=== PATIENT | male | born 1975 | race Caucasian/White ===

== ENCOUNTER 2023-04-05 15:37 | Emergency (ER) | payer BC, SELFPAY ==
--- NOTE | ~2023-04-05 | XR_ITS ---
XR chest 2V 04/05/2023 16:08 Indication: Chest pain, shortness of breath and hypertension Procedure: 2 view chest Comparison: No prior studies Findings: Heart size normal. No focal air space disease, pulmonary edema, pleural effusion or suspect ed pneumothorax. Impression: 1: No acute cardiopulmonary disease. Reviewed, dictated and finalized at location A. Impression: 1: No acute cardiopulmonary disease.
--- NOTE | 2023-04-05 15:45 | ECG_ITS ---
Measurements Intervals [place] Rate: 94 P: 68 [place]: 144 QRS: 57 QRSD: 110 T: 51 QT: 360 QTc: 451 Interpretive Statements SINUS RHYTHM INTRAVENTRICULAR CONDUCTION DELAY DELAYED PRECORDIAL R/S TRANSITION BASELINE ARTIFACT- I, III, AVL BORDERLINE ECG NO PREVIOUS ECG AVAILABLE FOR COMPARISON Electronically Signed On 04-05-2023 18:51:04 CDT by Marquez Silva D.O.
[2023-04-05 15:48] VITALS: BP 160/81; PULSE 95; RESP 15; TEMP 36.9; O2SAT 100
[2023-04-05 16:00] LABS: Basophils Percent Auto 0.1 % (0.2-1.2); Eosinophils Percent Auto 0.4 % (0-4.4); Hematocrit 43.3 % (42.0-52.0); Hemoglobin 14.1 g/dL (14.0-18.0); Immature Granulocyte Absolute 0.05 K/mm3 (0.00-0.031); Immature Granulocyte Percent A 0.5 % (0-0.5); Lymphocytes Absolute Auto 1.47 K/mm3 (0.9-3.2); Lymphocytes Percent Auto 14.4 % (18.3-44.2); Mean Corpuscular HGB Conc 32.6 g/dl (32-36); Mean Corpuscular Hemoglobin 30.9 pg (26-34); Mean Platelet Volume 9.7 fl (7.4-10.4); Monocytes Absolute Auto 0.5 K/mm3 (0.1-0.6); Monocytes Percent Auto 4.8 % (2.6-8.5); Neutrophils Absolute Auto 8.2 K/mm3 (1.3-6.7); Neutrophils Percent Auto 79.8 % (45.5-73.1); Platelet Count Result 179 k/mm3 (150-375); Red Blood Count 4.56 M/mm3 (4.6-6.20); Red Cell Distribution Width 12.1 % (11.5-14.5); White Blood Count 10.2 K/mm3 (4.5-10.0)
[2023-04-05 16:11] LABS: Prothrombin Time 13.7 Seconds (11.1-14.7)
[2023-04-05 16:12] LABS: Partial Thromboplastin Time 26.6 SECONDS (22.3-36.8)
[2023-04-05 16:13] LABS: Alanine Aminotransferase 88 U/L (6-50); Albumin Level 4.9 g/dL (3.5-5.1); Alkaline Phosphatase 55 U/L (38-126); Anion Gap 9 mmol/L (8-16); Aspartate Amino Transferase 54 U/L (17-59); Bilirubin,Total 0.9 mg/dL (0.2-1.3); Blood Urea Nitrogen 13 mg/dL (9-20); Calcium 9.4 mg/dL (8.4-10.2); Carbon Dioxide 26 mmol/L (22-30); Chloride 102 mmol/L (98-107); Estimated CRCL calculation 102 ml/min; Estimated Glomerular Filt Rate > 60; Glucose 104 mg/dL (65-110); Lipase 137 U/L (23-300); Potassium 3.8 mmol/L (3.4-5.0); Sodium 137 mmol/L (137-145)
[2023-04-05 16:25] LABS: Troponin I < 0.012 ng/mL (0.000-0.034)
[2023-04-05 18:40] VITALS: PULSE 81
[2023-04-05] MEDS: ASPIRIN 81 MG CHEWABLE TABLET 324 MG PO (18:48)
--- NOTE | 2023-04-05 18:55 | ED.CHESTPAIN ---
HPI - Chest Pain General Chief Complaint: Chest Pain Stated Complaint: cp Time Seen by Provider: 04/05/23 18:15 History of Present Illness HPI narrative: Patient is a 47-year-old male with a history of hypertension presenting with chest pain. Patient states that his blood pressure has been running high lately. States that he has been taking his antihypertensives as prescribed. Developed some chest discomfort last night which is continued through today. States that he had a panic attack earlier and had some numbness in his fingers which has happened in the past. He was advised to come in for evaluation if he had chest pain so he came in today. States that he is starting to feel better. States that his anxiety has improved. States that certain positional changes make the chest pain work. States that it is on the left as well as the right. No pleuritic or exertional component. No shortness of breath, leg swelling, palpitations. States that he felt lightheaded while having a panic attack earlier. Denies further complaints. Related Data Home Medications Medication Instructions Recorded Confirmed losartan 50 mg tablet 50 mg PO DAILY 04/05/23 Allergies Allergy/AdvReac Type Severity Reaction Status Date / Time Penicillins Allergy Hives Verified 04/05/23 18:47 Review of Systems Review of Systems: All systems reviewed & are unremarkable except as noted in HPI and below Exam Narrative: GENERAL: Well-appearing and in no acute distress. Pleasant and cooperative HEAD: Normocephalic, atraumatic. EYES: PERRLA and EOMI. ENT: Mucous membranes moist. NECK: Supple. CHEST: Clear to auscultation. No respiratory distress. HEART: Regular rate and rhythm. No murmur heard ABDOMEN: Soft, nontender, nondistended EXTREMITIES: Normal range of motion. No edema. SKIN: Warm, dry, no rash. NEURO: No focal deficits. Alert and oriented x3. PSYCH: Normal mood and affect. Course Vital Signs Vital signs: Vital Signs Temperature 98.4 F 04/05/23 15:48 Pulse Rate 95 04/05/23 15:48 Respiratory Rate 15 04/05/23 15:48 Blood Pressure 160/81 H 04/05/23 15:48 Pulse Oximetry 100 04/05/23 15:48 Oxygen Delivery Room Air 04/05/23 15:48 Temperature 98.8 F 04/05/23 20:24 Pulse Rate 75 04/05/23 20:24 Respiratory Rate 21 H 04/05/23 20:24 Blood Pressure 130/81 04/05/23 20:24 Pulse Oximetry 99 04/05/23 20:24 Oxygen Delivery Room Air 04/05/23 15:48 MDM - Chest Pain MDM Narrative Medical decision making narrative: Patient is a 47-year-old male presenting with intermittent chest pain. Patient is hypertensive, otherwise vitals are within normal limits. Exam is unremarkable. EKG per my interpretation shows normal sinus rhythm, normal axis, + IVCD, no ST elevations or depressions. No priors for comparison. Blood work is unremarkable. Troponins are negative x2. Chest x-ray without acute abnormalities. Heart score of 3. On reevaluation, patient is resting comfortably. Blood pressure has improved on its own. Advised that he follow-up with his PCP. Appropriate return precautions given. Patient voiced understanding and is agreeable with plan. Discharged in stable condition. Differential Diagnosis Differential diagnosis: Likely fracture of rib, pneumothorax, atypical chest pain, costochondritis and chest pain Medical Records Data Attestation: I reviewed the patient's medical records. Lab Data Attestation: I reviewed the patient's lab results. 04/05/23 15:51 04/05/23 15:51 Labs: Lab Results 04/05/23 04/05/23 Range/Units 15:51 18:41 WBC 10.2 H (4.5-10.0) K/mm3 RBC 4.56 L (4.6-6.20) M/mm3 Hgb 14.1 (14.0-18.0) g/dL Hct 43.3 (42.0-52.0) % MCV 95.0 (80-100) fl MCH 30.9 (26-34) pg MCHC 32.6 (32-36) g/dl RDW 12.1 (11.5-14.5) % Plt Count 179 (150-375) k/mm3 MPV 9.7 (7.4-10.4) fl Immature Gran % (Auto) 0.5 (0-0.5) % Neut % (
[2023-04-05 19:08] LABS: Troponin I < 0.012 ng/mL (0.000-0.034)
[2023-04-05 19:22] VITALS: BP 133/81; PULSE 79; RESP 15; TEMP 37.1; O2SAT 100
[2023-04-05 19:23] VITALS: PULSE 77
[2023-04-05 20:24] VITALS: BP 130/81; PULSE 75; RESP 21; TEMP 37.1; O2SAT 99
== END 2023-04-05 20:25 | disposition home or self-care (01) ==
PROVIDERS: Emergency Provider Emergency Medicine
DX: R07.89 Other chest pain (principal)
CPT/HCPCS: 36415; 71046; 80053; 83690; 84484; 85025; 85610; 85730; 93005; 99284; A9270

== ENCOUNTER 2024-09-04 14:16 | Emergency (ER) | payer BC, SELFPAY ==
[2024-09-04 14:38] VITALS: BP 121/72; PULSE 93; RESP 15; TEMP 38; O2SAT 99
--- NOTE | 2024-09-04 14:39 | ED_ITS ---
HPI - URI/Sore Throat General Chief Complaint: Upper Respiratory Infection Stated Complaint: Sinus/Congestion Time Seen by Provider: 09/04/24 14:21 Source: patient Mode of arrival: ambulatory Limitations: no limitations History of Present Illness HPI Narrative: Patient is a 48-year-old male who presents with 4 days of cough and congestion. Patient states he called PCP and was told to come to urgent care for chest x-ray pain. Patient has also had fever. Similar symptoms 2 weeks ago. Has been taking 500 mg of Tylenol every 6 hours. Related Data Home Medications ?Medication ?Instructions ?Recorded ?Confirmed ?Last Taken ?Type losartan 50 mg tablet 50 mg PO DAILY 04/05/23 Unknown History Allergies Allergy/AdvReac Type Severity Reaction Status Date / Time Penicillins Allergy Hives Verified 09/04/24 14:22 Review of Systems Review of Systems: All systems reviewed & are unremarkable except as noted in HPI and below Constitutional: Constitutional: Denies chills, Denies fatigue, Denies fever(s), Denies headache(s), Denies malaise and Denies weakness Eyes: Eyes: Denies blurry vision, Denies itchy eyes and Denies loss of vision ENT: Denies otalgia, Denies headache(s), Reports nasal congestion, Denies sinus pain and Denies sore throat Cardiovascular: Cardiovascular: Denies chest pain, Denies irregular heart rhythm and Denies dyspnea Respiratory: Respiratory: Reports cough and Denies dyspnea Gastrointestinal: Gastrointestinal: Denies abdominal pain, Denies diarrhea, Denies nausea and Denies vomiting Musculoskeletal: Musculoskeletal: Denies back pain, Denies myalgias and Denies arthralgias Integumentary/Breasts: Skin/Breast: Denies pruritus and Denies rash Neurologic: Denies headache(s), Denies loss of vision and Denies weakness Psychiatric: Psychiatric: Reports no additional psychiatric complaints Endocrine: Endocrine: Denies fatigue Allergic/Immunologic: Allergic/Immunologic: Denies itchy eyes PMFSH Comments At time of signature, agree with nursing past medical, surgical, social and family history. There is no relevant family history pertinent to the presenting complaint. Exam Const: General: cooperative, healthy appearing, comfortable, no acute distress and well nourished Nutritional Appearance: well nourished Orientation/consciousness: patient oriented x3 Limitations: no limitations HENMT: Head: normal to inspection, normocephalic and atraumatic Ears: hearing grossly normal bilaterally, external ears normal, TM's normal bilaterally, EAC's normal and no periauricular adenopathy Face/Nose/Sinus: Normal external nose present, Abnormal mucous membranes and turbinates present erythematous bilateral and diffuse, normal facial exam, sinuses nontender and face symmetric Face and sinus: normal facial exam, sinuses nontender and face symmetric Mouth: Yes Normal oral and palatal mucosa present, Yes lip normal, Yes tongue normal, Yes Normal salivary glands and ducts present, Yes oropharynx normal and Yes moist mucous membranes Teeth and gingiva: dentition normal Throat: posterior oropharynx normal, tonsils normal and uvula midline Eyes: General: appearance normal, both eyes and all related structures Alignment and Position: alignment normal and position normal Periorbital: periorbital findings normal Eyelids: eyelids normal Pupils: Equal, round and reactive pupils present Neck: Neck: normal visual inspection, full ROM, no lymphadenopathy and supple Chest: Chest palpation & inspection: normal inspection of the chest and normal palpation of entire chest wall Resp: Effort & Inspection: normal respiratory effort and able to speak in complete sentences Auscultation: clear to auscultation bilaterally, no crackles, no rales, no rhonchi and no wheezes Cardio: Rate: regular rate Rhythm: regular rhythm Heart sounds: S1 normal heart sound present and S2 normal heart sound present GI: Inspection: normal to inspection Skin: General skin exam: normal color and no rashes or lesions noted Neuro: General: patient oriented x3 and moves all extremities Cranial nerves: Yes Equal, round and reactive pupils present Speech: normal speech Gait exam (Neuro): Normal gait present Extrem: General: normal to inspection, full ROM and no edema Psych: Appearance: grossly normal and well kempt Mental Status: mental status grossly normal Speech and movement: Normal speech and movement present Affect: normal affect Attitude: cooperative Thought process: Normal thought process present Course Course Emergency Course: Discharge instructions reviewed with patient, as well as provided in writing per nursing staff. The instructions also include specific and strict return/GO TO THE ER as well as f/u information. All questions have been answered, and the patient deny any further questions with discharge and discharge plan. Portions of this record may have been created with voice recognition software Level of Care: Express Care Visit Vital Signs Vital signs: Vital Signs Temperature 38.0 C H 09/04/24 14:38 Pulse Rate 93 09/04/24 14:38 Respiratory Rate 15 09/04/24 14:38 Blood Pressure 121/72 09/04/24 14:38 Pulse Oximetry 99 09/04/24 14:38 Oxygen Delivery Room Air 09/04/24 14:38 Temperature 38.0 C H 09/04/24 14:38 Pulse Rate 93 09/04/24 14:38 Respiratory Rate 15 09/04/24 14:38 Blood Pressure 121/72 09/04/24 14:38 Pulse Oximetry 99 09/04/24 14:38 Oxygen Delivery Room Air 09/04/24 14:38 Reviewed MDM - URI/Sore Throat MDM Narrative Medical decision making narrative: Pt well hydrated appearing, in no respiratory distress, hemodynamically stable. Recommend supportive care. The patient is stable at time of discharge the clinical impression was discussed and the patient was given the opportunity to ask questions, which were addressed as completely as possible given the information available at present. Anticipatory guidance and return to care precautions were discussed and the importance of primary care follow-up was stressed and encouraged. The patient voiced understanding of the plan, indications to return, and the need for follow-up. Differential diagnosis considered: Bronchitis, Etienne virus, strep pharyngitis, allergic rhinitis, upper respiratory tract infection, sinusitis, rhinosinusitis, nasopharyngitis. viral pharyngitis, otitis media, otitis externa, otitis effusion, foreign body, cerumen impaction, viral syndrome, and influenza.? Exam findings show no acute concerns or changes; patient is non-toxic appearing and i s in no distress.? Patient is appropriate for outpatient treatment and follow- up.? Medical Records Attestation: I reviewed the patient's medical records. Lab Data Attestation: I reviewed the patient's lab results. Labs: Lab Results 09/04/24 Range/Units 14:34 POC Influenza A Ag Negative (Negative) POC Influenza B Ag Negative (Negative) POC SARS CoV-2 Ag Negative (Negative) Discharge Plan Discharge Clinical Impression: Upper respiratory infection Qualifiers: URI type: unspecified viral URI Qualified Code(s): J06.9 - Acute upper respiratory infection, unspecified Patient Disposition: Home, Self-Care Condition: Stable Instructions: Upper Respiratory Infection (ED) Additional Instructions: Your Covid and flu are both negative Your symptoms are likely due to a viral illness, which is not treated with antibiotics. Viral symptoms can be present for up to a few weeks. -For pain/fever, you may take: Tylenol 650-1000mg by mouth every 4-6 hours. Do not exceed 4000mg in 24 hours. Advil (Ibuprofen) 600 mg by mouth every 6 hours. Do not exceed 2400mg in 24 hours. 8 AM: Tylenol 11 AM: Ibuprofen 2 PM: Tylenol 5 PM: Ibuprofen 8 PM: Tylenol 11 PM: Ibuprofen 2 AM: Tylenol 5 AM: Ibuprofen -Antihistamine medication such as Benadryl/Zyrtec at night and Claritin/Angella during the day can help improve symptoms. -Use Flonase twice a day for 5 days then daily to help reduce the inflammation and dry up your sinuses. -You can also use Sudafed behind the pharmacy counter(12 or 24 hour). Be sure to drink plenty of water with these medications at least 8 ounces with every dose and it is important to drink 8 to 10 glasses of water per day. Water is a natural decongestant -Eat and drink things that are easy to swallow, like tea or soup, or popsicles. -Oral rinses such as: Salt water gargles and/or may use topical anesthetic (eg. Chloraseptic spray) or lozenges to relieve dryness or throat pain). -Frequent hand washing or hand learning and development director is one of the best ways to prevent spread of infection. -Using a vaporizer or humidifier at night will also help thin secretions and help with coughing up phlegm. Call your Primary Care Doctor and make a follow-up appointment in 3 days. If your cough worsens, you develop a fever greater than 103, you develop shaking chills, a fast heartbeat, trouble breathing and/or feel you are are breathing much faster than usual, call your Primary Care Doctor or go to the ER. Patient Language: Martiniquais Prescriptions: New (DME) Aerochamber MV Spacer See Rx Instructions .Route Qty: 1 0RF Rx Instructions: As directed benzonatate 100 mg capsule 100 mg PO BID PRN (Reason: cough) Qty: 14 0RF albuterol sulfate 90 mcg/actuation HFA aerosol inhaler 2 puff inhalation QID PRN (Reason: shortness of breath or wheezing) Qty: 6.7 0RF fluticasone propionate [Flonase Allergy Relief] 50 mcg/actuation spray,suspension 1 spray intranasal DAILY Qty: 16 0RF Rx Instructions: administer into each nostril No Action losartan 50 mg Tablet 50 mg PO DAILY Follow-up/Referrals: Bushra,Ambrosio Massey MD [Primary Care Provider] - 3 Days Time of Disposition: 15:00
[2024-09-04 15:13] LABS: EDCOVIDSCREEN Negative (Negative); EDINFLUASCREEN Negative (Negative); EDINFLUBSCREEN Negative (Negative)
== END 2024-09-04 15:05 | disposition home or self-care (01) ==
PROVIDERS: Emergency Provider Nurse Practitioner Family; PCP Family Medicine
DX: J06.9 Acute upper respiratory infection, unspecified (principal); Z20.822 Contact with and (suspected) exposure to COVID-19; I10 Essential (primary) hypertension
CPT/HCPCS: 87426; 87804; 99213; G0463

== ENCOUNTER 2025-01-22 14:36 | Emergency (ER) | payer OTHER, SELFPAY ==
--- NOTE | ~2025-01-22 | CT_ITS ---
3. CTA chest PE protocol Ordering provider: Stella Lino History: 49 years Male with . left side chest pain, back pain, tingling to L arm . Comparison: None. Technique: CT angiogram chest was performed following timed intravenous injection of contrast. Thin s lice axial images and reformatted coronal images were obtained. Three dimensional reformatted images of the chest were also obtained using a [employer] workstation. . Automated exposure control and iterati ve reconstruction technique were employed. The dose-length product was 208.54 mGy-cm. 100 mL Omnipaqu e 350 was given IV. Findings: PULMONARY ARTERIES: No pulmonary embolus. VISUALIZED THORACIC INLET: Nodule in the right lobe of the thyroid. Ultrasound evaluation advised. MEDIASTINUM: Aorta/coronary arteries: The thoracic aorta is normal. Heart/other: The heart is not enlarged. Lymph nodes: No mediastinal or hilar adenopathy. LUNGS: No pulmonary nodules or masses. No infiltrates or effusions. No pneumothorax. VISUALIZED UPPER ABDOMEN: the visualized upper abdomen is normal. MUSCULOSKELETAL: Soft tissues: The superficial soft tissues are normal. Bones: Normal spine. IMPRESSION: 1. No pulmonary embolism. 2. No acute cardiopulmonary pathology. 3. Nodule in the right lobe of the thyroid. Ultrasound evaluation advised. Reviewed, dictated and finalized at location A.
--- NOTE | ~2025-01-22 | XR_ITS ---
EXAM/PROCEDURE: XR chest 2V - 01/22/2025 14:58 CDT HISTORY: 49 years old Male with chest pain TECHNIQUE: Two view(s) of the chest. COMPARISON: None available. FINDINGS: LUNGS/ PLEURA: No focal consolidation. No appreciable pneumothorax or large pleural effusion. HEART/ MEDIASTINUM: Heart appears normal in size. BONES: No acute osseous abnormality. OTHER: Visualized upper abdomen is unremarkable. IMPRESSION: No acute process. Reviewed, dictated and finalized at location A. IMPRESSION: No acute process.
--- NOTE | 2025-01-22 14:37 | ECG_ITS ---
Test Date: 2025-01-22 14:44:58 Measurements Intervals [place] Rate: 74 P: 67 [place]: 140 QRS: 58 QRSD: 109 T: 50 QT: 381 QTc: 423 Interpretive Statements SINUS RHYTHM WITH SINUS ARRHYTHMIA POSSIBLE LEFT ATRIAL ENLARGEMENT [-0.1mV P WAVE IN V1/V2] No previous ECG available for comparison Electronically Signed On 01-23-2025 07:14:54 CDT by Ricardo Thornton M.D.
[2025-01-22 14:38] VITALS: BP 138/93; PULSE 85; RESP 17; TEMP 36.4; O2SAT 100
--- OUTSIDE RECORDS SUMMARY | 2025-01-22 14:38 | XMS_ITS | Continuity of Care Document ---
Author Organization [facility] Address [address] [place] [address] Phone Care Team Providers Care Leather Scraper Name Role Phone Dawood NOLASCO, Richy Unavailable Unavailable Allergies, Adverse Reactions, Alerts Substance Reaction Status Criticality penicillin G Active No Information Medications Medication Instructions Dosage Effective Dates (start - stop) Status Comments Cipro 500 mg tablet take 1 tablet (500MG ) by oral route every 12 hours 500 MG - Active Procedures Procedure Date OFFICE/OUTPATIENT VISIT, EST OFFICE/OUTPATIENT VISIT, EST PREV VISIT, EST, AGE 18-39 OFFICE/OUTPATIENT VISIT, EST Advance Directives Directive Yes / No Effective Date File Name No Information Encounters Encounter Description Practice Location Reason(s) For Visit Diagnoses Date Provider Providers Copied on Encounter OFFICE/OUTPA TIENT VISIT, EST [facility], [address] [place], [id number], [place] tel:[phone] [facility] hand infection (chief complaint) Cellulitis and abscess of hand, except fingers and thumb 3 0-201 3 Dawood Lockhart. [address], [place], [id number] , [place]. tel:[phone] Referring Provider: Richy Seay, [address] [place], [place], [id number]. tel:[phone] OFFICE/OUTPA TIENT VISIT, EST [facility], [address] [place], [id number], [place] tel:[phone] [facility] suture removal (chief complaint) Open wound of hand except fingers alone, without mention of complication 3 Dawood Lockhart. [address] [facility] [facility] [address] [place], [place], [id number] , [place]. [phone] Referring Provider: Richy Seay, Robert Decker [facility] [address], [place], [place], [id number]. tel:[phone] PREV VISIT, EST, AGE 18-39 [facility], [address], [place], [place], [id number], [place] tel:[phone] [facility] PHysical (chief complaint) Routine Medical ExamDisturbance of skin sensationChest Pain, UnspecifiedRoutine Medical Exam 3 Dawood Lockhart. [address], [facility], [place], [place], [id number] , [place]. tel:[phone] Family History Family Member Type Diagnosis Age At Onset Mother Problem (finding) Alive and well Father Problem (finding) hep c Sister Problem (finding) Alive and well Payers Payer name Insurance type Covered democrat ID Authoriza tion(s) No Information Social History Type Description Quantity Date Captured Comments Alcohol Use Details Caffeine Use Details Unknown Tobacco Use Status No Information Smoking Status Current every day smoker 2012 Sex Male Vital Signs Date / Time: Height Weight BMI Pulse Rate Blood Pressure Temperature Respiratory Rate Body Surface Area Head Circumference BMI percentile Pulse Ox Inhaled Ox 5:43 PM 69.00 in 153.00 lbs 22.5 9 kg/m eter (2) 73 /min 134/88 mm[Hg] 98.2 F 16 /min Chief Complaint And Reason For Visit From encounter dated '05/14/2013 17:41'. hand infection (chief complaint) Plan Of Treatment Date Type Action Status Goal Tobacco cessation counseling completed Goal Tobacco cessation counseling completed Referral Ordered: CARDIOVASCULAR STRESS TEST ordered History Of Present Illness Encounter Date Complaint History Of Prese nt Illness No Information Instructions Date Instruction Additional Infor mation No Information Assessments Type Assessment Date No Information Mental Status Date Cognitive Assessment Orientation - [place] ed to time, place, person, situation.
--- OUTSIDE RECORDS SUMMARY | 2025-01-22 14:38 | XMS_ITS | Clinical Summary ---
Author Organization [facility] [address] Address [address] [place] [address] Care Team Providers Care Non Destructive Tester Name Role Phone No, Physician Primary Care Provider [phone] Allergies Active Allergy Reactions Criticality Noted Date Comments Penicillin V Hives Medium 11/04/2017 Medications No known medications Active Problems Problem Noted Date Diagnosed Date Acute otitis externa of left ear 05/10/2020 Chronic eczematous otitis externa of both ears 1 Medical History Medical History Date Comments Allergic rhinitis Autoimmune disease Dizziness Tinnitus Psoriasis Family History Medical History Relation Name Comments Cancer Mother's Brother Autoimmune disease Mother's Sister Diabetes Mother's Sister Relation Name Status Comments Mother's Brother Mother's Sister Social History Tobacco Use Types Packs/Day Years Used Date Smoking Tobacco: Former Smokeless Tobacco: Never Alcohol Use Standard Drinks/Week Comments Yes 0 (1 standard drink = 0.6 oz pur e alcohol) Personal Safety Answer Date Recorded Getting School Help Needed Not on file 09/29 Sex and Gender Information Value Date Recorded Sex Assigned at Not on file Legal Sex Male 3:16 PM CDT Gender Identity Not on file Sexual Orientation Not on file Obstetrics History Last Filed Vital Signs Vital Sign Reading Time Taken Comments Blood Pressure - - Pulse - - Temperature 37 C (98.6 F) 05/20/2020 2:35 PM HYDRAULIC BARKER OPERATOR Respiratory Rate - - Oxygen Saturation - - Inhaled Oxygen Concentration - - Weight 72.6 kg (160 lb) 05/20/2020 2:35 PM HYDRAULIC BARKER OPERATOR Height 177.8 cm (5' 10) 05/20/2020 2:35 PM HYDRAULIC BARKER OPERATOR Body Mass Index 22.96 05/20/2020 2:35 PM HYDRAULIC BARKER OPERATOR Plan of Treatment Not [place] [id number] [facility] [place] [phone] Care Teams Non Destructive Tester Relationship Specialty Start Date End Date No, Physician PCP - General 05/06/20
--- OUTSIDE RECORDS SUMMARY | 2025-01-22 14:38 | XMS_ITS | Clinical Summary ---
Author Organization [facility] Address [address] [place] [address] Care Team Providers Care Meat Team Lead Name Role Phone Alisa Bullock NP Primary Care Provider Unavailabl e Allergies Active Allergy Reactions Criticality Noted Date Comments Penicillin V Hives Medium 11/04/2017 Medications Crisaborole (EUCRISA) 2 % OintmentIndicatio ns:Psoriasis Apply 1 g topically 2 (two) times daily. 60 g 0 Active LISINOPRIL 5 MG tabletIndications :Essential hypertension TAKE 1 TABLET BY MOUTH DAILY 30 tablet 1 1 Active Active Problems No known active problems Family History Medical History Relation Comments COPD Maternal Aunt Diabetes Maternal Aunt Relation Status Comments Maternal Aunt Social History Tobacco Use Types Packs/Day Years Used Date Smoking Tobacco: Never Smokeless Tobacco: Never Alcohol Use Standard Drinks/Week Comments Yes 0 (1 standard drink = 0.6 oz pur e alcohol) PHQ-2 Answer Date Recorded PHQ-2 Score - If the patient scores above 3, please move on to questions 3-9 1 05/26/2020 Sex and Gender Information Value Date Recorded Sex Assigned at Not on file Legal Sex Male 8:07 PM CDT Gender Identity Not on file Sexual Orientation Not on file Last Filed Vital Signs Vital Sign Reading Time Taken Comments Blood Pressure 128/78 06/30/2020 1:19 PM CLIENT CUSTOMER MANAGER Pulse 96 06/30/2020 1:19 PM CLIENT CUSTOMER MANAGER Temperature 37.2 C (99 F) 06/30/2020 1:19 PM CLIENT CUSTOMER MANAGER Respiratory Rate 18 06/30/2020 1:19 PM CLIENT CUSTOMER MANAGER Oxygen Saturation 97% 06/30/2020 1:19 PM CLIENT CUSTOMER MANAGER Inhaled Oxygen Concentration - - Weight 71.7 kg (158 lb) 06/30/2020 1:19 PM CLIENT CUSTOMER MANAGER Height 175.3 cm (5' 9) 06/30/2020 1:19 PM CLIENT CUSTOMER MANAGER Body Mass Index 23.33 06/30/2020 1:19 PM CLIENT CUSTOMER MANAGER Plan of Treatment Health Maintenance Due Date Last Done Comments Colorectal Cancer Screening Colonoscopy (10 Years) 1977 Hepatitis C 11/14/1995 DTaP, Tdap and Td Vaccines ( 1 - Tdap) 1996 Hepatitis B Vaccines (1 of 3 - 19+ 3-dose series) 1996 Annual Physical 05/26/2021 05/26/2020, 05/26/2020 COVID-19 Vaccine ( - 2023-2 5 season) 2024 Meningococcal B Vaccine Aged Out No l onger eligible based on patient's age to complete this topic Meningococcal Vaccine Aged Out No laurent moshe eligible based on patient's age to complete this topic Pneumococcal Vaccine: Pediatrics (0 to 5 Years) and At-Risk Patients (6 to 49 Years) Aged Out No longer eligible b ased on patient's age to complete this topic RSV Immunizations Under 20 Months Aged Out No longer eligible b ased on patient's age to complete this topic Insurance [facility] Care Teams Meat Team Lead Relationship Specialty Start Date End Date Alisa Bullock NP PCP - General NURSE PRACTITIONER 05/26/20
--- OUTSIDE RECORDS SUMMARY | 2025-01-22 14:38 | XMS_ITS | Referral Summary ---
Author Organization [facility] [employer] Address [address] [place] [address] Care Team Providers Care Rewinder Operator Name Role Phone No, Physician Primary Care Provider [phone] Allergies Active Allergy Reactions Criticality Noted Date Comments Penicillin V Hives Medium 11/04/2017 Medications No known medications Active Problems Problem Noted Date Diagnosed Date Acute otitis externa of left ear 05/10/2020 Chronic eczematous otitis externa of both ears 1 Social History Tobacco Use Types Packs/Day Years [...] 37 C (98.6 F) 05/20/2020 2:35 PM COMMUNITY MUSIC THERAPIST Respiratory Rate - - Oxygen Saturation - - Inhaled Oxygen Concentration - - Weight 72.6 kg (160 lb) 05/20/2020 2:35 PM COMMUNITY MUSIC THERAPIST Height 177.8 cm (5' 10) 05/20/2020 2:35 PM COMMUNITY MUSIC THERAPIST Body Mass Index 22.96 05/20/2020 2:35 PM COMMUNITY MUSIC THERAPIST Plan of Treatment [place] [id number] [facility] [address] [place] [phone] Care Teams Rewinder Operator Relationship Specialty Start Date End Date No, Physician PCP - General 05/06/20
--- NOTE | 2025-01-22 14:44 | ED_ITS ---
HPI - Chest Pain General Chief Complaint: Chest Pain <Stella Lino PA-C - Last Filed: 01/22/25 14:46> Stated Complaint: chest pain <Stella Lino PA-C - Last Filed: 01/22/25 14:46> Time Seen by Provider: 01/22/25 20:11 <Stella Lino PA-C - Last Filed: 01/22/25 14:46> Focused HPI: 49-year-old male with history of hypertension presents to the emergency department for chest pain and back pain for the past week. Patient states the pain started in his left mid back near his scapula and now is radiating to the left side of his chest with intermittent tingling down his left arm. 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 He has wondered if he perhaps pinched nerve in his back but would like to make sure that his heart is okay. He denies any cough, congestion, shortness of breath, abdominal pain. Denies focal numbness or weakness. He states his father had heart disease. Denies smoking. Patient admits to drinking 4 beers daily. GENERAL: Well-appearing, well-nourished, and in no acute distress. HEAD: Normocephalic, atraumatic. CHEST: Clear to auscultation. ?No respiratory distress. HEART: Regular rate and rhythm.? NEURO: ?Alert and oriented x3. Patient screened in triage and initial orders placed.? ?Additional care and disposition to be based upon?diagnostic testing and treatment. <Stella Lino PA-C - Last Filed: 01/22/25 14:46> Focused HPI: 49-year-old male with history of hypertension presents to the emergency department for chest pain and back pain for the past week. Patient states the pain started in his left mid back near his scapula and now is radiating to the left side of his chest with intermittent tingling down his left arm. 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 He has wondered if he perhaps pinched nerve in his back but would like to make sure that his heart is okay. He denies any cough, congestion, shortness of breath, abdominal pain. Denies focal numbness or weakness. He states his father had heart disease. Denies smoking. Patient admits to drinking 4 beers daily. GENERAL: Well-appearing, well-nourished, and in no acute distress. HEAD: Normocephalic, atraumatic. CHEST: Clear to auscultation. ?No respiratory distress. HEART: Regular rate and rhythm.? NEURO: ?Alert and oriented x3. Patient screened in triage and initial orders placed.? ?Additional care and disposition to be based upon?diagnostic testing and treatment. Agree with triage assessment. Patient states that he does have chronic back pain and feels as though his symptoms are likely due to that a wanted to make sure and get checked out. <Mandy Brewer MD - Last Filed: 01/22/25 22:17> Related Data Home Medications: Home Medications ?Medication ?Instructions ?Recorded ?Confirmed ?Last Taken ?Type losartan 50 mg tablet 50 mg PO DAILY 04/05/23 Unknown History <Stella Lino PA-C - Last Filed: 01/22/25 14:46> Allergies/Adverse Reactions: Allergies Allergy/AdvReac Type Severity Reaction Status Date / Time Penicillins Allergy Hives Verified 01/22/25 14:38 <Stella Lino PA-C - Last Filed: 01/22/25 14:46> Review of Systems 2 Review of Systems: All systems are reviewed and are negative unless stated otherwise in the HPI. <Mandy Brewer MD - Last Filed: 01/22/25 22:17> Exam 2 Narrative: General: Alert, awake, afebrile, in no acute distress. HEENT: PERRL, no rhinorrhea, no post nasal drip, oropharynx clear. Neck: Trachea midline, no JVD, no lymphadenopathy. Cardiovascular: Regular rate and rhythm, no murmurs, rubs or gallops, no peripheral edema. Respiratory: Clear to auscultation bilaterally, no tachypnea, no wheezing, no rhonchi, no rubs, no respiratory distress. Abdomen: Soft, nontender, nondistended, no rebound, no guarding, no peritoneal signs. Musculoskeletal: No joint swelling or deformity, normal muscle tone. Skin: No rashes or petechia, no signs of infection. Psychiatric: Alert and oriented, normal behavior and judgment for situation. Neurological: Alert and oriented to person, place, and time. Follows all commands. No focal deficits, speech is clear and fluent. <Mandy Brewer MD - Last Filed: 01/22/25 22:17> Course Vital Signs Vital signs: Vital Signs Temperature 97.6 F 01/22/25 14:38 Pulse Rate 85 01/22/25 14:38 Respiratory Rate 17 01/22/25 14:38 Blood Pressure 138/93 H 01/22/25 14:38 Pulse Oximetry 100 01/22/25 14:38 Oxygen Delivery Room Air 01/22/25 14:38 Temperature 98.1 F 01/22/25 18:59 Pulse Rate 70 01/22/25 18:59 Respiratory Rate 16 01/22/25 18:59 Blood Pressure 126/85 01/22/25 18:59 Pulse Oximetry 100 01/22/25 18:59 Oxygen Delivery Room Air 01/22/25 14:38 <Stella Lino PA-C - Last Filed: 01/22/25 14:46> Vital Signs Temperature 97.6 F 01/22/25 14:38 Pulse Rate 85 01/22/25 14:38 Respiratory Rate 17 01/22/25 14:38 Blood Pressure 138/93 H 01/22/25 14:38 Pulse Oximetry 100 01/22/25 14:38 Oxygen Delivery Room Air 01/22/25 14:38 Temperature 98.1 F 01/22/25 18:59 Pulse Rate 70 01/22/25 18:59 Respiratory Rate 16 01/22/25 18:59 Blood Pressure 126/85 01/22/25 18:59 Pulse Oximetry 100 01/22/25 18:59 Oxygen Delivery Room Air 01/22/25 14:38 <Mandy Brewer MD - Last Filed: 01/22/25 22:17> MDM - Chest Pain MDM Narrative Medical decision making narrative: The patient was evaluated by myself in the emergency department. History is obtained from patient who is an independent historian and physical exam was performed. External medical records were reviewed at this time. IV was established and pertinent tests were ordered. EKG was obtained which revealed sinus rhythm rate of 74 beats per minute. No ST changes, T wave inversions or evidence of acute ischemia. EKG was independently interpreted by me and is currently pending official cardiology read. Laboratory results obtained revealing no acute process. Imaging studies obtained included CXR which was independently interpreted by me revealing no acute cardiopulmonary process, which is pending final radiology interpretation. CT angiogram chest PE protocol was also obtained and is currently pending. Differential diagnosis considerations include chronic back pain, acute coronary syndrome although unlikely given patient's low heart score and clinical presentation, dehydration, electrolyte derangements, acute viral syndrome, infectious process such as pneumonia, nerve impingement. Comorbidities impacting this visit include history of chronic back pain/nerve impingement. I have evaluated and discussed social determinants of health with the patient that could potentially impact subsequent diagnosis and treatment plans. Patient is now requesting to be discharged against medical advice as he no longer wants to wait for the CT results. CT has been pending read for over 2 hours. We did apologize and inform her that usually CT's do not take this long at this time of day, however, our current radiologist is reading extremely slow. <Mandy Brewer MD - Last Filed: 01/22/25 22:17> Lab Data Result diagrams: 01/22/25 14:48 01/22/25 14:48 <Stlela Lino PA-C - Last Filed: 01/22/25 14:46> Labs: Lab Results 01/22/25 01/22/25 Range/Units 14:48 18:57 WBC 8.6 (4.5-10.0) K/mm3 RBC 4.51 L (4.6-6.20) M/mm3 Hgb 13.8 L (14.0-18.0) g/dL Hct 42.3 (42.0-52.0) % MCV 93.8 (80-100) fl MCH 30.6 (26-34) pg MCHC 32.6 (32-36) g/dl RDW 12.4 (11.5-14.5) % Plt Count 199 (150-375) k/mm3 MPV 9.9 (7.4-10.4) fl Immature Gran % (Auto) 0.2 (0-0.5) % Neut % (Auto) 79.4 H (45.5-73.1) % Lymph % (Auto) 14.1 L (18.3-44.2) % Clay % (Auto) 5.6 (2.6-8.5) % Eos % (Auto) 0.6 (0-4.4) % Baso % (Auto) 0.1 L (0.2-1.2) % Lymph # (Auto) 1.21 (0.9-3.2) K/mm3 Clay # (Auto) 0.5 (0.1-0.6) K/mm3 Eos # (Auto) 0.1 (0-0.3) K/mm3 Baso # (Auto) 0.0 (0.0-0.1) K/mm3 Abs Immat Gran (auto) 0.02 (0.00-0.031) K/mm3 Absolute Neuts (auto) 6.8 H (1.3-6.7) K/mm3 Absolute Nucleated RBC 0.000 (0.0-0.012) K/mm3 Nucleated RBC % 0.0 (0.0-0.2) % PT 13.8 (11.1-14.7) Seconds INR 1.1 APTT 26.5 (22.3-36.8) Seconds Sodium 137 (137-145) mmol/L Potassium 4.1 (3.4-5.0) mmol/L Chloride 101 (98-107) mmol/L Carbon Dioxide 28 (22-30) mmol/L Anion Gap 8 (4-12) mmol/L BUN 15 (9-20) mg/dL Creatinine 0.84 (0.7-1.3) mg/dL Estim Creat Clear Calc 94 ml/min Estimated GFR > 60 (59 - ) Glucose 102 (65-110) mg/dL Calcium 9.4 (8.4-10.2) mg/dL Total Bilirubin 0.9 (0.2-1.3) mg/dL AST 28 (17-59) U/L ALT 20 (6-50) U/L Alkaline Phosphatase 43 (38-126) U/L Troponin I < 0.012 < 0.012 (0.000-0.034) ng/mL Total Protein 8.2 (6.3-8.2) g/dL Albumin 4.7 (3.5-5.1) g/dL Lipase 170 (23-300) U/L <Stella Lino PA-C - Last Filed: 01/22/25 14:46> Lab Results 01/22/25 01/22/25 Range/Units 14:48 18:57 WBC 8.6 (4.5-10.0) K/mm3 RBC 4.51 L (4.6-6.20) M/mm3 Hgb 13.8 L (14.0-18.0) g/dL Hct 42.3 (42.0-52.0) % MCV 93.8 (80-100) fl MCH 30.6 (26-34) pg MCHC 32.6 (32-36) g/dl RDW 12.4 (11.5-14.5) % Plt Count 199 (150-375) k/mm3 MPV 9.9 (7.4-10.4) fl Immature Gran % (Auto) 0.2 (0-0.5) % Neut % (Auto) 79.4 H (45.5-73.1) % Lymph % (Auto) 14.1 L (18.3-44.2) % Clay % (Auto) 5.6 (2.6-8.5) % Eos % (Auto) 0.6 (0-4.4) % Baso % (Auto) 0.1 L (0.2-1.2) % Lymph # (Auto) 1.21 (0.9-3.2) K/mm3 Clay # (Auto) 0.5 (0.1-0.6) K/mm3 Eos # (Auto) 0.1 (0-0.3) K/mm3 Baso # (Auto) 0.0 (0.0-0.1) K/mm3 Abs Immat Gran (auto) 0.02 (0.00-0.031) K/mm3 Absolute Neuts (auto) 6.8 H (1.3-6.7) K/mm3 Absolute Nucleated RBC 0.000 (0.0-0.012) K/mm3 Nucleated RBC % 0.0 (0.0-0.2) % PT 13.8 (11.1-14.7) Seconds INR 1.1 APTT 26.5 (22.3-36.8) Seconds Sodium 137 (137-145) mmol/L Potassium 4.1 (3.4-5.0) mmol/L Chloride 101 (98-107) mmol/L Carbon Dioxide 28 (22-30) mmol/L Anion Gap 8 (4-12) mmol/L BUN 15 (9-20) mg/dL Creatinine 0.84 (0.7-1.3) mg/dL Estim Creat Clear Calc 94 ml/min Estimated GFR > 60 (59 - ) Glucose 102 (65-110) mg/dL Calcium 9.4 (8.4-10.2) mg/dL Total Bilirubin 0.9 (0.2-1.3) mg/dL AST 28 (17-59) U/L ALT 20 (6-50) U/L Alkaline Phosphatase 43 (38-126) U/L Troponin I < 0.012 < 0.012 (0.000-0.034) ng/mL Total Protein 8.2 (6.3-8.2) g/dL Albumin 4.7 (3.5-5.1) g/dL Lipase 170 (23-300) U/L <Mandy Brewer MD - Last Filed: 01/22/25 22:17> Discharge Plan Discharge Clinical Impression: Atypical chest pain <Stella Lino PA-C - Last Filed: 01/22/25 14:46> Patient Disposition: Left Against Medical Advice <Stella Lino PA-C - Last Filed: 01/22/25 14:46> Condition: Improved <Stella Lino PA-C - Last Filed: 01/22/25 14:46> Instructions: Chest Pain (ED) <Stella Lino PA-C - Last Filed: 01/22/25 14:46> Additional Instructions: Please follow-up with the family doctor within the next 3-5 days. Return to the emergency department if any new or worsening symptoms develop. <Stella Lino PA-C - Last Filed: 01/22/25 14:46> Patient Language: Wolof <Stella Lino PA-C - Last Filed: 01/22/25 14:46> Prescriptions: No Action (DME) Aerochamber MV Spacer See Rx Instructions .Route Qty: 1 0RF Rx Instructions: As directed benzonatate 100 mg capsule 100 mg PO BID PRN (Reason: cough) Qty: 14 0RF albuterol sulfate 90 mcg/actuation HFA aerosol inhaler 2 puff inhalation QID PRN (Reason: shortness of breath or wheezing) Qty: 6.7 0RF fluticasone propionate [Flonase Allergy Relief] 50 mcg/actuation spray,suspension 1 spray intranasal DAILY Qty: 16 0RF Rx Instructions: administer into each nostril losartan 50 mg Tablet 50 mg PO DAILY <Stella Lino PA-C - Last Filed: 01/22/25 14:46> Follow-up/Referrals: Bushra,Ambrosio Massey MD [Primary Care Provider] - 3 Days <Stella Lino PA-C - Last Filed: 01/22/25 14:46> Time of Disposition: 20:31 <Stella Lino PA-C - Last Filed: 01/22/25 14:46> 20:31 <Mandy Brewer MD - Last Filed: 01/22/25 22:17>
[2025-01-22 14:59] LABS: Hematocrit 42.3 % (42.0-52.0); Hemoglobin 13.8 g/dL (14.0-18.0); Immature Granulocyte Percent A 0.2 % (0-0.5); Lymphocytes Absolute Auto 1.21 K/mm3 (0.9-3.2); Mean Corpuscular HGB Conc 32.6 g/dl (32-36); Mean Corpuscular Hemoglobin 30.6 pg (26-34); Mean Corpuscular Volume 93.8 fl (80-100); Nucleated Red Blood Cells Absolute Auto 0.000 K/mm3 (0.0-0.012); Nucleated Red Blood Cells Perc 0.0 % (0.0-0.2); Platelet Count Result 199 k/mm3 (150-375); Red Blood Count 4.51 M/mm3 (4.6-6.20); White Blood Count 8.6 K/mm3 (4.5-10.0)
[2025-01-22 15:10] LABS: INR 1.1; Prothrombin Time 13.8 Seconds (11.1-14.7)
[2025-01-22 15:11] LABS: Partial Thromboplastin Time 26.5 Seconds (22.3-36.8)
[2025-01-22 15:20] LABS: Alanine Aminotransferase 20 U/L (6-50); Albumin Level 4.7 g/dL (3.5-5.1); Alkaline Phosphatase 43 U/L (38-126); Anion Gap 8 mmol/L (4-12); Aspartate Amino Transferase 28 U/L (17-59); Bilirubin,Total 0.9 mg/dL (0.2-1.3); Blood Urea Nitrogen 15 mg/dL (9-20); Calcium 9.4 mg/dL (8.4-10.2); Carbon Dioxide 28 mmol/L (22-30); Chloride 101 mmol/L (98-107); Estimated CRCL calculation 94 ml/min; Estimated Glomerular Filt Rate > 60; Glucose 102 mg/dL (65-110); Lipase 170 U/L (23-300); Potassium 4.1 mmol/L (3.4-5.0); Sodium 137 mmol/L (137-145); Total Protein 8.2 g/dL (6.3-8.2)
[2025-01-22 15:31] LABS: Troponin I < 0.012 ng/mL (0.000-0.034)
[2025-01-22 15:40] VITALS: BP 128/75; PULSE 71; RESP 18; TEMP 36.6; O2SAT 99
--- OUTSIDE RECORDS SUMMARY | 2025-01-22 18:11 | XMS_ITS | Clinical Summary ---
Author Organization [facility] Address [address] [place] [id number] Care Team Providers Care Roller Repairer Name Role Phone Alisa Bullock NP Primary [...] Comments Blood Pressure 128/78 06/30/2020 1:19 PM ASSESSMENT NURSE PRACTITIONER Pulse 96 06/30/2020 1:19 PM ASSESSMENT NURSE PRACTITIONER Temperature 37.2 C (99 F) 06/30/2020 1:19 PM ASSESSMENT NURSE PRACTITIONER Respiratory Rate 18 06/30/2020 1:19 PM ASSESSMENT NURSE PRACTITIONER Oxygen Saturation 97% 06/30/2020 1:19 PM ASSESSMENT NURSE PRACTITIONER Inhaled Oxygen Concentration - - Weight 71.7 kg (158 lb) 06/30/2020 1:19 PM ASSESSMENT NURSE PRACTITIONER Height 175.3 cm (5' 9) 06/30/2020 1:19 PM ASSESSMENT NURSE PRACTITIONER Body Mass Index 23.33 06/30/2020 1:19 PM ASSESSMENT NURSE PRACTITIONER Plan of Treatment Health Maintenance Due Date [...] patient's age to complete this topic Insurance [facility] Care Teams Roller Repairer Relationship Specialty Start Date End Date Alisa Bullock NP PCP - General NURSE PRACTITIONER 05/26/20
--- OUTSIDE RECORDS SUMMARY | 2025-01-22 18:11 | XMS_ITS | Referral Summary ---
Author Organization [facility] [address] Address [address] [place] [address] Care Team Providers Care Hypo Splasher Name Role Phone No, Physician Primary Care Provider [phone] Allergies Active Allergy Reactions Criticality Noted Date [...] 37 C (98.6 F) 05/20/2020 2:35 PM SOCIAL SCIENCES CHAIR Respiratory Rate - - Oxygen Saturation - - Inhaled Oxygen Concentration - - Weight 72.6 kg (160 lb) 05/20/2020 2:35 PM SOCIAL SCIENCES CHAIR Height 177.8 cm (5' 10) 05/20/2020 2:35 PM SOCIAL SCIENCES CHAIR Body Mass Index 22.96 05/20/2020 2:35 PM SOCIAL SCIENCES CHAIR Plan of Treatment [place] [id number] [facility] [address] [place] [phone] Care Teams Hypo Splasher Relationship Specialty Start Date End Date No, Physician PCP - General 05/06/20
--- OUTSIDE RECORDS SUMMARY | 2025-01-22 18:11 | XMS_ITS | Clinical Summary ---
Author Organization [facility] [address] Address [address] [place] [address] Care Team Providers Care Stock Sorter Name Role Phone No, Physician Primary Care Provider [phone] Allergies Active Allergy Reactions Criticality Noted Date [...] 37 C (98.6 F) 05/20/2020 2:35 PM BASKET MENDER Respiratory Rate - - Oxygen Saturation - - Inhaled Oxygen Concentration - - Weight 72.6 kg (160 lb) 05/20/2020 2:35 PM BASKET MENDER Height 177.8 cm (5' 10) 05/20/2020 2:35 PM BASKET MENDER Body Mass Index 22.96 05/20/2020 2:35 PM BASKET MENDER Plan of Treatment [place] [id number] [facility] [place] [address] Care Teams Stock Sorter Relationship Specialty Start Date End Date No, Physician PCP - General 05/06/20
--- NOTE | 2025-01-22 18:51 | ECG_ITS ---
Test Date: 2025-01-22 18:53:17 Measurements Intervals [place] Rate: 60 P: 65 HI: 152 QRS: 58 QRSD: 105 T: 52 QT: 381 QTc: 381 Interpretive Statements SINUS RHYTHM Compared to ECG 01/22/2025 14:44:58 Sinus arrhythmia no longer present Electronically Signed On 01-23-2025 07:10:05 CDT by Ricardo Thornton M.D.
[2025-01-22 18:59] VITALS: BP 126/85; PULSE 70; RESP 16; TEMP 36.7; O2SAT 100
[2025-01-22 19:28] LABS: Troponin I < 0.012 ng/mL (0.000-0.034)
[2025-01-22] MEDS: ASPIRIN 81 MG CHEWABLE TABLET 324 MG PO (20:23)
[2025-01-22 21:01] VITALS: BP 123/81; PULSE 65; RESP 18; O2SAT 99
== END 2025-01-22 23:00 | disposition home or self-care (01) ==
PROVIDERS: Emergency Medicine; Emergency Provider Emergency Medicine; PCP Family Medicine
DX: R07.89 Other chest pain (principal)
CPT/HCPCS: 36415; 71046; 71275; 80053; 83690; 84484; 85025; 85610; 85730; 93005; 99284; A9270; Q9967